=== PATIENT | male | born 1950 | race Caucasian/White ===

== ENCOUNTER 2020-03-06 13:17 | Inpatient (IN) | payer MEDICARE, OTHER ==
[~2020-03-06] VITALS: Ht 170.2 cm; Wt 107.5 kg
[~2020-03-06 13:17] MED LIST: ALBUTEROL2.5 MG/3 M INH; AMIODARONE HCL200 MG PO; ASPIR 8181 MG PO; ASPIRIN81 MG PO; ATORVASTATIN CA40 MG PO; AZITHROMYCIN250 MG PO; B-122500 MCG SL; BROVANA15 MCG/2 M INH; BUMETANIDE1 MG PO; CARAFATE1 GM/10 ML PO; CATAPRES 0.1MG0.1 MG PO; CEFAZOLIN SODIU INJ; CEFUROXIME500 MG PO; CHLORTHALIDONE25 MG PO; CHRONULAC20 GM/30 M PO; CLOPIDOGREL75 MG PO; COLACE 100MG C100 MG PO; COZAAR25 MG PO; DOK100 MG PO; DOXYCYCLINE HY100 MG PO; ELIQUIS 5 MG TAB5 MG PO; ELIQUIS5 MG PO; FERROUS SULFAT325 M2 PO; FERROUS SULFAT325 MG PO; FLOMAX0.4 MG PO; FUROSEMIDE20 MG PO; FUROSEMIDE40 MG PO; FUROSEMIDE80 MG PO; HUMALOG100 UNIT/3 SC; HYGROTON TAB 2525 MG PO; IMDUR ER TAB 3030 MG PO; IMDUR ER TAB 6060 MG PO; INVANZ 1 GM VIAL1 GM IM; IPRAT-ALBUT 0.5-3 ML INH; LASIX 40 MG TAB40 MG PO; LASIX40 MG PO; MEDROL DOSEPAK 24 MG PO; MELATONIN3 M1 PO; MELATONIN3 MG PO; METOPROLOL SUC100 MG PO; MILK OF MAGNESI30 ML PO; NEURONTIN400 MG PO; NITROSTAT0.4 MG SL; NORCO 10-325 T1 EACH PO; OMEPRAZOLE40 MG PO; POTASSIUM CHLO20 ME1 PO; POTASSIUM CHLO20 ME2 PO; PROTONIX 40 MG40 M1 PO; PROTONIX40 MG PO; PROVENTIL HFA6.7 GM INH; RANEXA1000 MG PO; REQUIP5 MG PO; ROPINIROLE HCL5 MG PO; SPIRIVA HANDIH18 MCG INH; STIOLTO RESPIMAT4 GM INH; SYMBICORT 16010.2 GM INH; TOPROL XL25 MG PO; TOPROL XL50 MG PO; TRAZODONE HCL50 MG PO; VITAMIN C500 M4 PO; ZOCOR80 MG PO; ZOFRAN ODT 4 MG4 MG GT
[2020-03-06 14:09] LABS: HEMOGLOBIN 10.6 gm/dl (14.0-17.5); RED BLOOD COUNT 3.59 M/UL (4.20-5.50); WHITE BLOOD COUNT 6.3 K/UL (4.5-11.0)
[2020-03-06 15:04] LABS: BUN/CREATININE RATIO 20 (0-10)
[2020-03-07 03:20] LABS: HEMOGLOBIN 10.1 gm/dl (14.0-17.5); RED BLOOD COUNT 3.41 M/UL (4.20-5.50); WHITE BLOOD COUNT 4.7 K/UL (4.5-11.0)
[2020-03-07 03:56] LABS: BUN/CREATININE RATIO 21 (0-10)
[2020-03-08 03:06] LABS: HEMOGLOBIN 10.7 gm/dl (14.0-17.5); RED BLOOD COUNT 3.59 M/UL (4.20-5.50)
[2020-03-08 04:02] LABS: WHITE BLOOD COUNT 6.4 K/UL (4.5-11.0)
--- NOTE | 2020-03-08 20:45 | NUR ---
PATIENT WIGGLING AROUND IN BED AT THIS TIME AND HAS BEEN HAVING CONTINUED USE OF RIGHT UPPER EXTREMITY. REINTERATED TO PATIENT IMPORTANCE OF NOT APPLYING ANY PRESSURE TO EXTREMITY TO AVOID ANY BLEEDING TO DEVELOP. PATIENT VERBALIZES UNDERSTANDING AT THIS TIME. SITE WNL, BULKY DRESSING IN PLACE AND NO BLEEDING OR SWELLING NOTED AT THIS TIME. WILL CONTINUE TO MONITOR.
--- NOTE | 2020-03-08 22:00 | NUR ---
PATIENT CONTINUES TO MOVE AROUND IN BED. DOES NOT VOICE ANY PAIN AT THIS TIME. DROWSY BUT EASILY AROUSED. IV SITE PULLED OUT ACCIDENTAL FROM MOVEMENT IN BED. SITE STILL HAS ARM IN SLING AND BULKY DRESSING IN PLACE NO VISIBLE BLEEDING NOTED OR EXCESSIVE SWELLING. WILL CONTINUE TO MONITOR.
--- NOTE | 2020-03-08 23:15 | NUR ---
PATIENT WAS SEEN BY ANOTHER NURSE STANDING AT BEDSIDE BY HIMSELF AT THIS TIME. PATIENT WAS ONCE AGAIN INSTRUCTED TO LAY BACK DOWN IN BED AT THIS TIME. PT VOICES UNDERSTANDING AND STATES "IM SORRY, YOU HAVE TO LOOK OVER ME SOMETIMES. I FORGET." PATIENT LAID BACK DOWN IN BED AT THIS TIME. SURGICAL SITE HAS NO CHANGES NOTED. NO VISIBLE OOZING OR EXCESSIVE SWELLING NOTED. WILL CONTINUE TO MONITOR.
--- NOTE | 2020-03-08 23:46 | NUR ---
NURSE CALLED TO ROOM FROM SR. MEDIA MANAGER FOR BLOOD ON IV SITE AND VISIBLE BLOOD TO SURGICAL SITE. ON ARRIVAL TO ROOM IV SITE APPEARED BLOODY AND SURGICAL SITE HAD AREA OF VISIBLE BLOOD NOTED. PRESSURE DRESSING REMOVED TO ASSESS SITE. GAUZE UNDER TEGADERM SATURATED IN BLOOD AND OOZING NOTED FROM UNDER TEGADERM. SWELLING NOTED TO SITE WELL AT THIS TIME. DR. GRAY NOTIFIED AT THIS TIME OF FINDINGS AND THAT PATIENT HAS BEEN HARD TO KEEP STILL AND NOT USE ARM MOST OF THE NIGHT. NURSE INSTRUCTED TO APPLY PRESSURE TO SITE AND THEN APPLY ANOTHER GOOD PRESSURE DRESSING AT THIS TIME. MD ALSO INSTRUCTED TO ENSURE THAT NO BLOOD THINNERS ARE GIVEN UNTIL March. PRESSURE APPLIED FOR 20 MINUTES AND PRESSURE DRESSING APPLIED. WILL CONTINUE TO MONITOR.
[2020-03-10 02:56] LABS: HEMOGLOBIN 8.3 gm/dl (14.0-17.5); RED BLOOD COUNT 2.78 M/UL (4.20-5.50); WHITE BLOOD COUNT 4.4 K/UL (4.5-11.0)
[2020-03-11 03:55] LABS: BUN/CREATININE RATIO 21 (0-10)
[2020-03-11 07:13] LABS: HEMOGLOBIN 8.5 gm/dl (14.0-17.5); RED BLOOD COUNT 2.78 M/UL (4.20-5.50); WHITE BLOOD COUNT 3.7 K/UL (4.5-11.0)
[2020-03-11 07:28] LABS: BUN/CREATININE RATIO 19 (0-10)
[2020-03-11] MEDS ORDERED: CHRONULAC20 GM/30 M PO (11:44)
[2020-03-11] MEDS ORDERED: STIMULANT LAXA1 EACH PO (11:44)
[2020-03-11] MEDS ORDERED: LEVOFLOXACIN500 MG PO (11:44)
[2020-03-11] MEDS ORDERED: CLINDAMYCIN HC150 MG PO (11:44)
== END 2020-03-11 14:52 | disposition home health service (06) | DRG 226 ==
LOC: ER1 13:17 → CDU 15:30 → PROG CARE 03-07 05:44
PROVIDERS: Emergency Medicine; Physician Assistant; Physician Assistant Medical; ADMIT Internal Medicine Infectious Disease
PROC: 0JH608Z Insertion of Defibrillator Generator into Chest Subcutaneous Tissue and Fascia, Open Approach (ICD-10-PCS; principal; 2020-03-08)
PROC: 0JH60FZ Insertion of Subcutaneous Defibrillator Lead into Chest Subcutaneous Tissue and Fascia, Open Approach (ICD-10-PCS; 2020-03-08)
PROC: 0JPT0PZ Removal of Cardiac Rhythm Related Device from Trunk Subcutaneous Tissue and Fascia, Open Approach (ICD-10-PCS; 2020-03-08)
DX: I13.0 Hypertensive heart and chronic kidney disease with heart failure and stage 1 through stage 4 chronic kidney disease, or unspecified chronic kidney disease (principal); I50.23 Acute on chronic systolic (congestive) heart failure; J96.21 Acute and chronic respiratory failure with hypoxia; J96.22 Acute and chronic respiratory failure with hypercapnia; G92 Toxic encephalopathy; J18.9 Pneumonia, unspecified organism; N17.9 Acute kidney failure, unspecified; I48.20 Chronic atrial fibrillation, unspecified; E11.22 Type 2 diabetes mellitus with diabetic chronic kidney disease; Z20.822 Contact with and (suspected) exposure to COVID-19; E87.5 Hyperkalemia; N18.30 Chronic kidney disease, stage 3 unspecified; J44.9 Chronic obstructive pulmonary disease, unspecified; I44.7 Left bundle-branch block, unspecified; I87.2 Venous insufficiency (chronic) (peripheral); I25.5 Ischemic cardiomyopathy; E66.01 Morbid (severe) obesity due to excess calories; I49.5 Sick sinus syndrome; I25.10 Atherosclerotic heart disease of native coronary artery without angina pectoris; D69.6 Thrombocytopenia, unspecified; D64.9 Anemia, unspecified; I73.9 Peripheral vascular disease, unspecified; I27.20 Pulmonary hypertension, unspecified; Z88.2 Allergy status to sulfonamides; Z79.899 Other long term (current) drug therapy; Z90.49 Acquired absence of other specified parts of digestive tract; Z79.01 Long term (current) use of anticoagulants; Z95.5 Presence of coronary angioplasty implant and graft; Z79.4 Long term (current) use of insulin; Z99.81 Dependence on supplemental oxygen; Z83.3 Family history of diabetes mellitus; Z95.2 Presence of prosthetic heart valve; I25.2 Old myocardial infarction
CPT/HCPCS: 33224; 36415; 36600; 71045; 80048; 80053; 80076; 81001; 82140; 82550; 82553; 82803; 82962; 83605; 83735; 83874; 83880; 84439; 84443; 84484; 85025; 85027; 87040; 92960; 93005; 93641; 94640; 94660; 94664; 94760; 96374; 96375; 99152; 99153; 99285; C1769; C1777; C1882; C1900; J0692; J1160; J1200; J1250; J1644; J1940; J2250; J2270; J2310; J2550; J3010; J3370; J7040; J7050; J7070; P9047; Q9965; U0002